=== PATIENT | female | born 1975 | race Caucasian/White ===

== ENCOUNTER 2017-05-06 12:01 | Emergency (ER) | payer MEDICAID ==
[2015-11-08 20:06] VITALS: BMI 25.1
[~2017-05-06 12:01] MED LIST: EPIPEN0.3 MG/0.3 IM; PEPCID20 MG PO
== END 2017-05-06 13:05 | disposition home or self-care (01) ==
LOC: D.ER 12:01
DX: J11.1 Influenza due to unidentified influenza virus with other respiratory manifestations (principal); F17.200 Nicotine dependence, unspecified, uncomplicated; R50.9 Fever, unspecified; R09.89 Other specified symptoms and signs involving the circulatory and respiratory systems; R11.2 Nausea with vomiting, unspecified